=== PATIENT | male | born 1995 ===

== ENCOUNTER 2021-05-21 16:40 | Emergency (ER) | payer OTHER ==
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
[2021-05-21 17:32] VITALS: BP 120/80
== END 2021-05-21 17:31 | disposition home or self-care (01) ==
LOC: ED 16:40
DX: S00.33XA Contusion of nose, initial encounter (principal); Y33.XXXA Other specified events, undetermined intent, initial encounter
CPT/HCPCS: 99281; 99282